=== PATIENT | female | born 1940 | race Caucasian/White ===

== ENCOUNTER → 2016-06-01 | Outpatient (CLI) | payer MEDICARE, OTHER ==
[~2016-06-01] VITALS: Ht 154.9 cm; Wt 74.8 kg
[~2016-06-01] MED LIST: ATOR20TA PO; CARV25TA PO; ESOM40CA PO; TELM40TA PO
--- NOTE | 2016-06-02 21:20 | RAD ---
APPROVED REPORT Test Type: Exercise Stress Nurse/Tech: Mana Parra R.N. Test Indications: htn, elevated calcium score Cardiac History: htn, Medications: see ehr Medical History: see ehr Resting ECG: SR Resting Heart Rate: 57 bpm Resting Blood Pressure: 157/83mmHg Pretest Chest Pain: No chest pain Nurse/Tech Notes lungs cta, heart tones regular Consent: The procedure was explained to the patient in lay terms. Informed consent was witnessed. Rehan eout was entered into [facility]. History and Stress Test performed by Mana Parra R.N. Stress Symptoms No chest pain or symptoms.Fatigue POST EXERCISE Reason for Termination: Reached target heart rate Target HR: Yes Max HR: 133 bpm 92% of Maximum Predicted HR: 144 bpm Exercise duration: 3:30 min:sec, 2 Stage Exercise capacity: 7.0METs Max Blood Pressure: 185/81mmHg Blood Pressure response to exercise: Normal blood pressure response during stress. Heart Rate response to exercise: normal Chest Pain: No. Arrhythmia: Yes. Unable to interpret ECG during exercise due to movement, PVC noted during recovery ST Change: No. Imaging Protocol IMAGE PROTOCOL: Rest Tc-99m/stress Tc-99m 1 day Rest: Stress: Viability: Radiopharm.Tc99m RaetpwlbrFa82g Sestamibi Dose12.9mCi 36.1mCi Duration 15min. 10min. Img Date 06/01/2016 06/01/2016 Inj-Img Oxck15ojg. 60min. Post-Injection Exercise: 1 minute Rest Admin Site:IV - Right HandAdministrator:ALEXUS Gunter Stress Admin Site: IV - Right HandAdministrator: KIRSTEN Bradshaw, ARRT (R)(N) STRESS DATA End Diast. Vol.48.0mlAv. Heart Rate78.0bpm End Syst. Vol.10.0mlCO Index BSA0.0L/min Myocardial Mass96.0gEject. Jzlygxqf96.0% Stress Rates Pk. Fill Rate3.35EDV/secLVtime Pk. Fill 234.54msec Pk. Empty Rate5.15ESV/secLVtime Pk. Nwpoe931.49msec 1/3 Pk. Fill0.57EDV/sec Stress Scores Regional WT1.00Summed WT3.00 Regional WM0.00Summed WM3.00 LV Perf. Quant 17 Seg. SSS0.00 17 Seg. SRS2.00 17 Seg. SDS0.00 Stress Defect Extent (% LAD)0.00Rest Defect Extent (% LAD)0.00Rev. Defect Extent (% LAD)0.00 Stress Defect Extent (% LCX) 0.00Rest Defect Extent (% LCX)0.00Rev. Defect Extent (% LCX)0.00 Stress Defect Extent (% RCA)0.00Rest Defect Extent (% RCA)0.00Rev. Defect Extent (% RCA)0.00 Stress Defect Extent (% GERMAINE)0.00Rest Defect Extent (% GERMAINE)0.00Rev. Defect Extent (% GERMAINE)0.00 Conclusion 1. No electrocardiographic changes suggestive of myocardial ischemia with pharmacological stress. 2. No perfusion defects to suggest myocardial ischemia or scar. 3. Normal wall motion and wall thickening with an ejection fraction of 79%. 4. Scan indicates low risk for future cardiac events.
== END | disposition home or self-care (01) ==
LOC: NM 07:49
PROVIDERS: ATTEND Family Medicine
DX: I10 Essential (primary) hypertension (principal); R93.1 Abnormal findings on diagnostic imaging of heart and coronary circulation; E78.00 Pure hypercholesterolemia, unspecified
CPT/HCPCS: 78452; 93017; 96374; 96376; A9500

== ENCOUNTER → 2017-05-27 | Outpatient (CLI) | payer MEDICARE, OTHER | END | disposition home or self-care (01) | LOC: KCIC 10:02 | DX: R06.09 Other forms of dyspnea (principal) | CPT/HCPCS: 71046 ==

== ENCOUNTER → 2018-10-13 | Outpatient (CLI) | payer MEDICARE, OTHER ==
--- NOTE | 2018-10-13 09:15 | RAD ---
EXAM: Left lower extremity bone length study. HISTORY: Arthroplasty. Feliciano and Nephew protocol. COMPARISON: 11/07/2017. FINDINGS: Frontal views of the left lower extremity are obtained. There is a left hip arthroplasty in expected position. There is minimal medial compartment spurring of the left knee. There is no fracture, dislocation or subluxation. IMPRESSION: 1. Left hip arthroplasty. 2. Minimal medial compartment osteoarthritis of the left knee. Electronically signed by: Winnie Hamilton MD (10/13/2018 9:12 AM) [facility]
--- NOTE | 2018-10-13 11:33 | RAD ---
MR of the left knee - Feliicano and Nephew protocol History: Chronic pain. Technique: Images are obtained in accordance with the standard Feliciano and Nephew protocol. 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 Small joint effusion. Small Andre's cyst. 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 Electronically signed by: Davis Taylor MD (10/13/2018 11:31 AM) [facility]
== END | disposition home or self-care (01) ==
LOC: RAD 08:28
PROVIDERS: ATTEND Orthopaedic Surgery Sports Medicine
DX: M17.12 Unilateral primary osteoarthritis, left knee (principal); M25.462 Effusion, left knee; M71.22 Synovial cyst of popliteal space [Baker], left knee; G89.29 Other chronic pain; Z96.642 Presence of left artificial hip joint
CPT/HCPCS: 73721; 77073

== ENCOUNTER → 2018-10-20 | Outpatient (CLI) | payer MEDICARE, OTHER ==
[~2018-10-20] MED LIST changes: +CARV20CP PO; +FEXO180T81 PO; +FLUT9.9S NS; +MULT1TAB52 PO; +OMEG-165 PO; +OMEP20TA63 PO; +VILA40TA PO; +VIT1TABL32 PO
[2018-10-20 12:09] LABS: BASO # 0.1 x10^3/uL (0.0-0.2); BASO % 1 % (0-3); BILIRUBIN,URINE NEGATIVE (NEG); CLARITY,URINE CLEAR; COLOR,URINE YELLOW; EOS # 0.2 x10^3/uL (0.0-0.7); EOS % 3 % (0-3); HEMATOCRIT 40.7 % (36.0-47.0); HEMOGLOBIN 13.7 g/dL (12.0-15.5); LYMPH # 1.9 x10^3/uL (1.0-4.8); LYMPH % 28 % (24-48); MEAN CORPUSCULAR HEMOGLOBIN 31 pg (25-35); MEAN CORPUSCULAR HGB CONC 34 g/dL (31-37); MEAN CORPUSCULAR VOLUME 93 fL (79-100); MONO # 0.5 x10^3/uL (0.0-1.1); MONO % 7 % (0-9); NEUT # 4.3 x10^3/uL (1.8-7.7); NEUT % 62 % (31-73); NITRITE,URINE NEGATIVE (NEG); PH,URINE 5.5; PLATELET COUNT 241 x10^3/uL (140-400); PROTEIN,URINE NEGATIVE (NEG-TRACE); RED BLOOD COUNT 4.39 x10^6/uL (3.50-5.40); RED CELL DISTRIBUTION WIDTH 13.4 % (11.5-14.5); UROBILINOGEN,URINE 0.2 mg/dL (0.2 mg/dL)
--- NOTE | 2018-10-20 12:09 | EKG ---
[facility] [address] [place] [address] Test Date: 2018-10-20 Test Time: 12:11:40 Pat Name: RUBEN ARRIAGA Department: Room: Gender: F Account Collector: WILL : 1940 Requested By: JIMMY MENDOZA Order Number: [id number] Reading MD: Jack Castaneda Measurements Intervals [place] Rate: 74 P: 45 NM: 136 QRS: -31 QRSD: 84 T: 4 QT: 382 QTc: 424 Interpretive Statements SINUS RHYTHM VENTRICULAR PREMATURE COMPLEX(ES) LEFT AXIS DEVIATION NONSPECIFIC ST-T WAVE CHANGES Electronically Signed On 10-21-2018 11:08:53 CDT by Jack Castaneda
[2018-10-20 12:19] LABS: CALCIUM 9.4 mg/dL (8.5-10.1); CREATININE 1.4 mg/dL (0.6-1.0); GFR 36.3; POTASSIUM 4.7 mmol/L (3.5-5.1)
[2018-10-20 12:20] LABS: PROTHROMBIN TIME PATIENT 13.3 SEC (11.7-14.0)
[2018-10-20 12:39] LABS: RBC,URINE 0 /HPF (0-2); WBC,URINE 0 /HPF (0-4)
[2018-10-20 12:40] LABS: BACTERIA,URINE 0 /HPF (0-FEW); SQUAMOUS EPITHELIAL CELL,UR FEW /LPF
== END | disposition home or self-care (01) ==
LOC: SURGPAT 10:54
PROVIDERS: ATTEND Orthopaedic Surgery Sports Medicine
DX: Z01.818 Encounter for other preprocedural examination (principal); M17.0 Bilateral primary osteoarthritis of knee; R53.82 Chronic fatigue, unspecified; I49.3 Ventricular premature depolarization
CPT/HCPCS: 36415; 80048; 81001; 82306; 85025; 85610; 85651; 85730; 87641; 93005

== ENCOUNTER → 2019-12-14 | Outpatient (CLI) | payer MEDICARE, OTHER ==
[2018-12-04 12:20] VITALS: BP 119/54
[~2019-12-14] MED LIST changes: +MULT-445 PO; -MULT1TAB52 PO
--- NOTE | 2019-12-14 16:28 | KCIC ---
BRAIN W/O CONTRAST History:Reason: VISION DISTURBANCES / Spl. Instructions: H/O TIA's / History: New onset of waviness in vision x 2 mths. Normal eye exam. Technique: Multiplanar, multi sequential MR imaging was performed of the brain without contrast. Comparison: March 02, 2014 Findings: No acute infarct. No intracranial hemorrhage. No mass effect. No hydrocephalus. Right frontal region arachnoid cyst measures 3.5 x 2.0 cm there is scalloping of the adjacent calvarium, unchanged. Additional arachnoid cyst within the left superior frontal parietal region measures 2.0 x 1.0 cm, unchanged. Mild foci of FLAIR hyperintensities within the hemispheric white matter, most often due to chronic microvascular ischemia. Imaged orbits are unremarkable. Mild right maxillary sinus mucosal thickening. Minimal mastoid fluid. Impression: 1. No acute intracranial abnormality. 2. Unchanged right frontal and left frontoparietal arachnoid cysts. Electronically signed by: Satinder Rowe DO (12/14/2019 4:26 PM) [id number]
== END ==
LOC: KCIC MRI 15:04
PROVIDERS: ATTEND Family Medicine
DX: G93.0 Cerebral cysts (principal); H53.9 Unspecified visual disturbance
CPT/HCPCS: 70551

== ENCOUNTER 2020-11-07 12:49 | Day surgery (SDC) | payer MEDICARE, OTHER ==
[~2020-11-07] VITALS: Ht 153 cm; Wt 63.5 kg
[~2020-11-07 12:49] MED LIST changes: +CLINDAMYCIN 900MG PREMIX 50 ML IV PRN; +FLUT1DIS IH; +HYDROmorphone 2 MG/ML VIAL IVP PRN; +IV RINGERS,LACTATED 1000ML 1,000 ML IV SCH; +MORPHINE SULFATE 2 MG/ML INJ. IVP PRN; +OMEG1CAP27 PO; +PROCHLORPERAZINE 10 MG/2 ML VIAL. IVP PRN; +VILA10TA PO; +fentaNYL PF VIAL 100 MCG/2 ML VIAL IVP PRN; +voltaren gel
[2020-11-07] MEDS ORDERED: PROPOFOL 10 MG/ML (20ML) VIAL. IV ONE (13:07)
[2020-11-07] MEDS ORDERED: fentaNYL PF VIAL 100 MCG/2 ML VIAL ONE ×2 (13:07→14:32)
[2020-11-07] MEDS ORDERED: LIDOCAINE 2% PF 5 ML VIAL. ONE (13:07)
[2020-11-07] MEDS ORDERED: BUPIVACAINE MPF 0.25% 30 ML VIAL. ONE (13:43)
[2020-11-07] MEDS ORDERED: methylPREDNISolone ACETATE 80 MG/ML VIAL. ONE (13:43)
[2020-11-07] MEDS ORDERED: DEXAMETHASONE SOD PHOS 4 MG/ML VIAL ONE (13:54)
[2020-11-07] MEDS ORDERED: ONDANSETRON PF 4 MG/2 ML VIAL. ONE (13:54)
[2020-11-07] MEDS ORDERED: methylPREDNISolone ACETATE 40 MG/ML VIAL. IM ONE (14:00)
[2020-11-07] MEDS ORDERED: SEVOFLURANE 61 TO 120 MINUTES. IH ONE (14:03)
--- NOTE | 2020-11-07 14:08 | PDOC4 ---
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
[2020-11-07] MEDS ORDERED: TRAM50TA PO (14:14)
[2020-11-07] MEDS: fentaNYL PF VIAL 100 MCG/2 ML VIAL IVP PRN ×3 (14:52→15:20)
[2020-11-07] MEDS ORDERED: traMADol 50 MG TABLET ONE (15:24)
[2020-11-07] MEDS ORDERED: traMADol 50 MG TABLET PO ONE (16:00)
--- NOTE | 2020-11-07 16:15 | OP ---
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 PROCEDURES: 1. Right first dorsal compartment release. 2. Injection, AC joint, subacromial right shoulder, 80 mg Kenalog, 2 mL 0.25% Marcaine. SURGEON: Zane Marquis Jr., DO. DISEASE AND INSECT CONTROL BOSS: Richard Scott. ANESTHESIA: General. COMPLICATIONS: None. ESTIMATED BLOOD LOSS: 5 mL. Standard dictation for lpn or medical assistant. DESCRIPTION OF PROCEDURE: The patient was taken to the operative suite, given a general anesthetic. The AC joint was first under sterile preparation injected with the steroid as noted. After this was completed, the right upper extremity was then prepped and draped in the sterile fashion. An incision was made directly over the area of a first dorsal compartment. This incision was taken through skin and subcutaneous tissues. Careful dissection was taken down to the that first dorsal compartment, which was identified and released. After this was released in its entirety, there was noted to be fluid coming from this region, which was more ____ serous looking fluid. This area was irrigated. The tendons were inspected and noted to be completely intact and released. Therefore, this was thoroughly irrigated again. Skin was reapproximated. Sterile dressing was applied. Tourniquet was deflated with good return of pulses and capillary refill. The patient was then taken from the operative bed to the postoperative bed and taken to the PACU in stable condition. RAKEL/COMFORT/LANNY DR: Marina TID: [id number]
[2020-11-07 16:30] VITALS: BP 156/76
== END 2020-11-07 17:15 | disposition home or self-care (01) ==
LOC: SURG 12:49
PROVIDERS: ATTEND Orthopaedic Surgery
DX: M19.011 Primary osteoarthritis, right shoulder (principal); M65.4 Radial styloid tenosynovitis [de Quervain]; I10 Essential (primary) hypertension; E78.00 Pure hypercholesterolemia, unspecified; M19.90 Unspecified osteoarthritis, unspecified site; F32.9 Major depressive disorder, single episode, unspecified; E66.9 Obesity, unspecified; K21.9 Gastro-esophageal reflux disease without esophagitis; Z85.828 Personal history of other malignant neoplasm of skin; Z90.710 Acquired absence of both cervix and uterus; Z98.890 Other specified postprocedural states; Z79.899 Other long term (current) drug therapy; Z86.73 Personal history of transient ischemic attack (TIA), and cerebral infarction without residual deficits; Z82.49 Family history of ischemic heart disease and other diseases of the circulatory system; Z88.0 Allergy status to penicillin; Z88.1 Allergy status to other antibiotic agents; Z88.8 Allergy status to other drugs, medicaments and biological substances
CPT/HCPCS: 20605; 25000; A4930; J1040; J1100; J2405; J2704; J3010; J3490; A4657; A6452; J1030